=== PATIENT | female | born 1970 | race Caucasian/White ===

== ENCOUNTER → 2016-08-26 | Outpatient (CLI) | payer OTHER ==
[~2016-08-26] MED LIST: HCG PO; MULTCAP PO
[2016-08-26 12:03] LABS: BACTERIA, URINE OCC /hpf; BLOOD, URINE NEG (NEG); GLUCOSE,URINE NEG (NEG); KETONE, URINE NEG (NEG); NITRITE,URINE NEG (NEG); SQUAMOUS EPITHELIAL CELL URINE 3 /hpf (0-5); URINE COLOR LIGHT-YELLOW (YELLW/STRAW)
[2016-08-26 12:04] LABS: COMMENT (UR) CULT NOT INDICATED; CULTURE IF INDICATED CULT NOT INDICATED
[2016-08-26 12:05] LABS: AUTOMATED NEUTROPHIL # 4.4 TH/MM3 (1.8-7.7); BASOPHIL % 0.3 % (0.0-2.0); EOSINOPHIL # 0.1 TH/MM3 (0-0.4); EOSINOPHIL % 0.9 % (0.0-4.0); HEMATOCRIT 35.7 % (35.0-46.0); HEMO FLAGS DIFF FINAL; LYMPH % 25.8 % (9.0-44.0); LYMPHOCYTE # 1.7 TH/MM3 (1.0-4.8); MEAN CORPUSCULAR HEMOGLOBIN 29.2 PG (27.0-34.0); MEAN CORPUSCULAR HGB CONC 33.2 % (32.0-36.0); MONO % 7.9 % (0.0-8.0); NEUT % 65.1 % (16.0-70.0); PLATELET COUNT 381 TH/MM3 (150-450); RED BLOOD COUNT 4.06 MIL/MM3 (4.00-5.30); RED CELL DISTRIBUTION WIDTH 14.5 % (11.6-17.2); WHITE BLOOD COUNT 6.8 TH/MM3 (4.0-11.0)
[2016-08-26 12:37] LABS: ALT (GPT) 20 U/L (10-53); ANION GAP 4 MEQ/L (5-15); AST (GOT) 8 U/L (15-37); BICARBONATE 25.9 MEQ/L (21.0-32.0); BLOOD UREA NITROGEN 5 MG/DL (7-18); CHLORIDE 107 MEQ/L (98-107); GLOMERULAR FILTRATION RATE 89 ML/MIN (>89); GLUCOSE,FASTING 83 MG/DL (74-99); POTASSIUM 4.6 MEQ/L (3.5-5.1); SODIUM (NA) 137 MEQ/L (136-145)
[2016-08-26 12:40] LABS: ALKALINE PHOSPHATASE 52 U/L (45-117); TOTAL BILIRUBIN ADULT 0.4 MG/DL (0.2-1.0)
[2016-08-26 12:42] LABS: BHCG SCREEN QUALITATIVE 1 MIU/ML (0-5)
== END ==
LOC: CPRE 10:59
PROVIDERS: ATTEND Obstetrics & Gynecology Gynecology
DX: Z01.812 Encounter for preprocedural laboratory examination (principal); N93.8 Other specified abnormal uterine and vaginal bleeding
CPT/HCPCS: 36415; 80053; 81001; 84703; 85025

== ENCOUNTER → 2016-09-01 | Day surgery (SDC) | payer OTHER ==
--- NOTE | 2016-08-26 12:55 | MH ---
cc: ROSELINE MARINA,BLANCA SILVA,JAYDE Dickens MD DATE OF ADMISSION: 09/01/2016 DATE OF : 1970 REASON FOR ADMISSION Scheduled for endometrial ablation on September 01, 2016. HISTORY OF PRESENT ILLNESS The patient is a 46-year-old white female, 4, para 3, who has had prior and tubal ligation with tubal reversal. She has dysfunctional uterine bleeding that is unresponsive to medicinal therapy. She has bleeding that lasts heavily 3-4 days out of the month and then persists for another 10 days. She had an ultrasound that shows normal uterus except for small 2 cm fibroids. Patient has declined IUD and medicinal therapy and wants to proceed with endometrial ablation. PAST MEDICAL HISTORY The patient's medical history is negative for heart, lung, liver disease, hypertension, diabetes, stroke. PAST SURGICAL HISTORY . Tubal ligation. Tubal reversal. FAMILY HISTORY Noncontributory. SOCIAL HISTORY . Has good social support. 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 OBSTETRICAL HISTORY as above. GYNECOLOGIC HISTORY No STDs or abnormal Pap smears. ALLERGIES None. MEDICATIONS [id number] vitamins. FAMILY HISTORY Noncontributory. REVIEW OF SYSTEMS As above. No chest pain, orthopnea, PND. No nausea, vomiting, fever or chills. No vaginal bleeding or discharge except as noted above. PHYSICAL EXAMINATION VITAL SIGNS: She is afebrile, vital signs stable. Blood pressure is 120/70, height is 5 feet 5 inches, weight 165, BMI is 27.7. GENERAL: Patient is alert and oriented, no acute distress. No sign of cognitive dysfunction or depression. HEENT: Within normal limits. NECK: Supple. No JVD. CHEST: Clear. HEART: Regular rate and rhythm. ABDOMEN: Soft, nontender. No hepatosplenomegaly. No CVA tenderness. PELVIC: Will be detailed under anesthesia. EXTREMITIES: Normal skin without rashes. NEURO: Nonfocal. No DVT signs. IMAGING STUDIES Ultrasound shows uterus approximately 10 cm retroverted. Endometrial stripe normal. Small 2 cm fibroid noted. The ovaries unremarkable. ASSESSMENT Patient with dysfunctional bleeding, unresponsive to medicinal therapy. The patient and I and her have discussed extensively options for management and treatment. She wants to proceed with endometrial ablation. She is aware of the risks, benefits and alternatives to the planned procedure including possibility that bleeding may not be remedied and also possibility of damage to surrounding organs including bladder and bowel. In light of the patient's prior section, will perform hysteroscopy first to assess the cavity then proceed with a NovaSure endometrial ablation. The patient will use DVT prophylaxis per protocol with sequential compression device and antibiotic prophylaxis with Ancef 1 gram. Anticipate outpatient procedure. 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 These fibroids are small, unlikely to be any significant issue and the patient opts not to proceed with treatment at this time regarding fibroids. Anticipate outpatient procedure. MD ROBIN Cespedes/TLFaina /12:24 PM /12:37 PM TOR
[~2016-09-01] VITALS: Ht 162.6 cm; Wt 73.3 kg
[~2016-09-01] MED LIST changes: +ACETAMINOPHEN 1000 MG/100 ML VIAL IV ONE; +DEXAMETHASONE SOD PHOS 20 MG/5 ML VIAL ONE; +DO NOT ADM ANY ANTICOAGULANT DRUGS XX PRN; +FAMOTIDINE 20 MG/2 ML VIAL ONE; -HCG PO; +INSULIN HUMAN REGULAR 1,000 UNITS/10 ML VIAL SQ PRN; +KETOROLAC TROMETHAMINE 10 MG TAB PO PRN; +KETOROLAC TROMETHAMINE 30 MG/ML (IVP) VIAL IV PUSH PRN; +KETOROLAC TROMETHAMINE 60 MG/2 ML (IM) VIAL IM ONE; +KETOROLAC TROMETHAMINE 60 MG/2 ML (IM) VIAL IM PRN; +LACTATED RINGER'S 1000 ML IV SCH; +METOPROLOL TARTRATE 25 MG TAB PO PRN; +MIDAZOLAM HCL 2 MG/2 ML VIAL ONE; +ONDANSETRON HCL 4 MG/2 ML VIAL IV PUSH ONE; +ONDANSETRON HCL 4 MG/2 ML VIAL IV PUSH PRN; +PROPOFOL 200 MG/20 ML AMP IV ONE; +SODIUM CHLORID 0.9% 500 ML IV SCH; +SODIUM CHLORIDE 0.9% INJ 100 ML ONE; +ceFAZolin 1,000 MG/NS 100 ML IV SCH; +ceFAZolin INJ 1,000 MG VIAL ONE; +fentaNYL CITRATE 250 MCG/5 ML AMP ONE
[2016-09-01 06:44] VITALS: BP 106/71; PULSE 81; RESP 18; TEMP 98.9; O2SAT 97
[2016-09-01 09:42] VITALS: BP 111/68; PULSE 58; RESP 18; TEMP 97; O2SAT 100
--- NOTE | 2016-09-02 05:18 | MP ---
cc: JAYDE SILVA MD, SUSAN DATE OF PROCEDURE 09/01/2016 PREOPERATIVE DIAGNOSES Dysfunctional bleeding unresponsive to medicinal therapy. POSTOPERATIVE DIAGNOSIS Dysfunctional bleeding unresponsive to medicinal therapy. PROCEDURES 1. Hysteroscopy, D&C. 2. NovaSure radiofrequency endometrial ablation. SURGEON MD Milton ANESTHESIA Laryngeal mask. ASSESSMENT CLINICIAN Hood x 1. BLOOD LOSS 10 cc. URINE OUTPUT 100 cc prior to case. FLUIDS 2000 cc crystalloid. FINDINGS External genitalia normal. POP-Q score: Aa is -1, Ap is -1. Point C is -16. Total vaginal length is 10. Genital hiatus is 4. Perineal body is 4. The uterus is slightly retroverted, sounds to 10 cm. Calculated dimensions are 5 cm depth and 3.7 cm width. Hysteroscopy otherwise unremarkable. Following the procedure, the endometrial cavity shows a uniform burn pattern with no sign of any damage to surrounding organs. SPECIMENS Endometrial curettage. COMPLICATIONS None. DISPOSITION To the recovery room stable. COUNTS Needle, instrument and sponge counts correct. DRAINS None. ANTIBIOTIC PROPHYLAXIS Ancef 1 gram. DVT PROPHYLAXIS Sequential compression device. TIME-OUT PROCEDURE Per protocol. SUMMARY OF INDICATION AND PROCEDURE Patient with dysfunctional bleeding unresponsive to medicinal therapy. She had declined option for IUD or hormone manipulation and wanted to proceed with endometrial ablation. The patient was taken to the operating room theatre, prepped and draped in a fashion appropriate for the planned procedure. She was in dorsal lithotomy position with careful attention paid to placement of her legs in the stirrups to avoid undue stress to sensitive neurovascular structures. The above findings were noted. Neurovascular integrity was documented. The bladder was drained. The cervix was identified, grasped with a single-tooth tenaculum. The cervix required minimal dilation. A 5-mm scope was placed under direct visualization using normal saline as distension medium. Above findings noted. Curettage was obtained The NovaSure handpiece was calibrated and placed with 5-cm length and 3.7-cm width. Computerized burn cycle uncomplicated. The repeat hysteroscopy showed uniform burn pattern with no sign of damage to surrounding organs. The procedure was concluded. The patient was reversed from anesthesia, taken to the recovery room in stable condition. Should the patient have issues with continued bleeding, she would be a reasonable candidate for a supracervical hysterectomy since she has good apical support. She does have a somewhat large genital hiatus. She may benefit from perineoplasty. MD ROBIN Cespedes/JEYSON /8:50 AM /5:06 AM
== END | disposition home or self-care (01) ==
LOC: HSDC 06:04
PROVIDERS: ATTEND Obstetrics & Gynecology Gynecology
DX: N93.8 Other specified abnormal uterine and vaginal bleeding (principal); D25.9 Leiomyoma of uterus, unspecified
CPT/HCPCS: 00952; 58563; 88305; J0131; J0690; J1100; J1885; J2250; J2405; J3010; J7120

== ENCOUNTER 2017-02-23 22:58 | Emergency (ER) | payer OTHER ==
[~2017-02-23] VITALS: Ht 162.6 cm; Wt 68.0 kg
[~2017-02-23 22:58] MED LIST changes: -ACETAMINOPHEN 1000 MG/100 ML VIAL IV ONE; -DEXAMETHASONE SOD PHOS 20 MG/5 ML VIAL ONE; -DO NOT ADM ANY ANTICOAGULANT DRUGS XX PRN; -FAMOTIDINE 20 MG/2 ML VIAL ONE; -INSULIN HUMAN REGULAR 1,000 UNITS/10 ML VIAL SQ PRN; -KETOROLAC TROMETHAMINE 10 MG TAB PO PRN; -KETOROLAC TROMETHAMINE 30 MG/ML (IVP) VIAL IV PUSH PRN; -KETOROLAC TROMETHAMINE 60 MG/2 ML (IM) VIAL IM ONE; -KETOROLAC TROMETHAMINE 60 MG/2 ML (IM) VIAL IM PRN; -LACTATED RINGER'S 1000 ML IV SCH; -METOPROLOL TARTRATE 25 MG TAB PO PRN; -MIDAZOLAM HCL 2 MG/2 ML VIAL ONE; -ONDANSETRON HCL 4 MG/2 ML VIAL IV PUSH ONE; -ONDANSETRON HCL 4 MG/2 ML VIAL IV PUSH PRN; -PROPOFOL 200 MG/20 ML AMP IV ONE; -SODIUM CHLORID 0.9% 500 ML IV SCH; -SODIUM CHLORIDE 0.9% INJ 100 ML ONE; -ceFAZolin 1,000 MG/NS 100 ML IV SCH; -ceFAZolin INJ 1,000 MG VIAL ONE; -fentaNYL CITRATE 250 MCG/5 ML AMP ONE
[2017-02-23 23:08] VITALS: BP 107/67; PULSE 78; RESP 18; TEMP 98.3; O2SAT 96
[2017-02-23] MEDS ORDERED: SODIUM CHLOR 0.9% 1000 ML INJ 1,000 ML IV ONE (23:14)
--- NOTE | 2017-02-23 23:14 | PD ---
HPI Chief Complaint: GI Complaint Time Seen by Provider: 23:13 Travel History International Travel<30 days: No Contact w/Intl Traveler<30days: No Traveled to known affect area: No History of Present Illness HPI 46-year-old female presents to the emergency department by EMS transport from home for evaluation of 5 episodes of emesis just prior to arrival to the emergency department. Patient states she had vomited her entire stomach contents consistent with her dinner this evening. Patient reports her on 8 PM she ate crab and lobster that she shared with her son who is asymptomatic. Just prior to arrival to the emergency department after 10 PM she started having increasing nausea with repetitive vomiting of stomach contents. Intermittent crampy abdominal pain. No diarrhea. Patient states she vomited so much she saw some blood in her emesis. Patient reports that she "thought she was dying". Patient does not report bilious emesis and denies coffee- ground emesis. Patient also did consume wine. No fever no chills no chest pain no shortness of breath no referred neck jaw back shoulder arm pain. No history of CAD, hypertension, dyslipidemia, diabetes, or tobacco use. Patient with previous tubal ligation and revision of tubal ligation and uterine ablation. Pain is 0/10 intensity. PFSH Past Medical History Narrative Medical Tubal ligation, reversal of tubal ligation, uterine ablation, , Lasix eye surgery, occasional alcohol use; nursing notes reviewed Cancer: No Cardiovascular Problems: No Diabetes: No Endocrine: No Genitourinary: No Hepatitis: No Hiatal Hernia: No Immune Disorder: No Musculoskeletal: No Neurologic: No Psychiatric: No Respiratory: No Thyroid Disease: No ?: Unknown : 4 Para: 3 Tubal Ligation: Yes Past Surgical History Abdominal Surgery: Yes (c section) AICD: No Cardiac Surgery: No Section: Yes (X 1) Ear Surgery: No Endocrine Surgery: No Eye Surgery: Yes (lasiks eye surgery) Genitourinary Surgery: No Gynecologic Surgery: Yes (c section, tubal ligation, TUBAL REVERSAL) Joint Replacement: No Oral Surgery: No Pacemaker: No Thoracic Surgery: No Social History Alcohol Use: Yes (OCCASIONAL) Tobacco Use: No Substance Use: No Allergies-Medications (Allergen,Severity, Reaction): Coded Allergies: No Known Allergies (Verified , 02/23/17) Reported Meds & Prescriptions Reported Meds & Active Scripts Active No Active Prescriptions or Reported Medications Review of Systems Except as stated in HPI: all other systems reviewed are Neg General / Constitutional: No: Fever, Chills HENT: No: Congestion Cardiovascular: No: Chest Pain or Discomfort Respiratory: No: Shortness of Breath Gastrointestinal: Positive: Nausea, Vomiting, Abdominal Pain, No: Diarrhea, Loss of Appetite Genitourinary: No: Dysuria Musculoskeletal: No: Myalgias, Arthralgias Skin: No Rash Neurologic: No: Weakness Psychiatric: No: Anxiety Endocrine: No: Heat Intolerance Hematologic/Lymphatic: No: Easy Bruising Physical Exam Narrative GENERAL: Well-developed well-nourished female in no acute distress no respiratory distress SKIN: Warm and dry. HEAD: Normocephalic. EYES: No scleral icterus. No injection or drainage. NECK: Supple, trachea midline. No JVD or lymphadenopathy. CARDIOVASCULAR: Regular rate and rhythm without murmurs, gallops, or rubs. RESPIRATORY: Breath sounds equal bilaterally. No accessory muscle use. GASTROINTESTINAL: Abdomen soft, non-tender, nondistended. MUSCULOSKELETAL: No cyanosis, or edema. BACK: Nontender without obvious deformity. No CVA tenderness. Data Data Last Documented VS Vital Signs Date Time Temp Pulse Resp B/P Pulse Ox O2 Delivery O2 Flow Rate FiO2 02/23/17 23:16 18 97 Room Air 02/23/17 23:08 98.3 78 107/67 Orders Complete Blood Count With Diff (02/23/17 23:14) Comprehensive Metabolic Panel (02/23/17 23:14) Urinalysis - C+S If Indicated (02/23/17 23:14) Lipase (02/23/17 23:14) Abdomen, Flat & Upright (02/23/17 ) Iv Access Insert/Monitor (02/23/17 23:14) Ecg Monitoring (02/23/17 23:14) Oximetry (02/23/17 23:14) Ondansetron Inj (Zofran Inj) (02/23/17 23:15) Sodium Chlor 0.9% 1000 Ml Inj (Ns 1000 M (02/23/17 23:14) Sodium Chloride 0.9% Flush (Ns Flush) (02/23/17 23:15) Alcohol (Ethanol) (02/23/17 23:14) Ed Urine Pregnancytest Poc (02/23/17 23:14) [facility] Medical Decision Making Medical Screen Exam Complete: Yes Emergency Medical Condition: Yes Medical Record Reviewed: Yes Differential Diagnosis Food borne illness, gastroenteritis, alcohol ingestion, gastritis, pancreatitis , biliary colic, ACS, Melissa-Hand tear, Boerhaave's, upper GI bleed Narrative Course IV access obtained by EMS; patient received Zofran 4 mg IV by EMS prior to arrival; specimens collected and sent for resulting patient ordered bolus of normal saline and additional Zofran for nausea. At 23:25 PM patient has not decided to leave AGAINST MEDICAL ADVICE states she does not feel like she needs to be here discussed in detail benefit in this of leaving prior to completion of evaluation patient reports that she understands and is desirous of leaving states she will return if needs to. Spouse is at bedside. AMA: The risks of leaving against medical advice without further evaluation treatment were discussed with the patient. These risks include cardiac dysfunction, cardiac dysrhythmia, possible heart attack, possible stroke or . The patient indicated understanding of these risks and appeared to have the capacity to make this decision. Diagnosis Primary Impression: Vomiting Qualified Code: R11.2 - Non-intractable vomiting with nausea, unspecified vomiting type Additional Impression: Left against medical advice Scripts No Active Prescriptions or Reported Meds Disposition: 07 AGAINST MEDICAL ADVICE Condition: Stable Bella Mcdaniel MD Feb 23, 2017 23:14
[2017-02-23] MEDS ORDERED: SODIUM CHLORIDE 0.9% FLUSH 10 ML FLUSH IVF PRN (23:15)
[2017-02-23] MEDS ORDERED: ONDANSETRON HCL 4 MG/2 ML VIAL IVP ONE (23:15)
[2017-02-23 23:16] VITALS: RESP 18; O2SAT 97
[2017-02-23 23:45] VITALS: BP 110/68; PULSE 74; RESP 18; O2SAT 97
== END 2017-02-23 23:54 | disposition left against medical advice (07) ==
LOC: PHED 22:58
DX: R11.2 Nausea with vomiting, unspecified (principal); Z53.21 Procedure and treatment not carried out due to patient leaving prior to being seen by health care provider
CPT/HCPCS: 99281

== ENCOUNTER 2017-05-14 06:32 | Emergency (ER) | payer OTHER ==
[2017-05-14] MEDS ORDERED: ASPI81CH CHEW (06:40)
== END 2017-05-14 06:35 | disposition left against medical advice (07) ==
LOC: PHED 06:32
DX: R51 Headache (principal); Z53.21 Procedure and treatment not carried out due to patient leaving prior to being seen by health care provider
CPT/HCPCS: 99281